=== PATIENT | female | born 1960 ===

== ENCOUNTER 2022-12-18 12:46 | Outpatient (REF) | payer MEDICAID, SELFPAY ==
--- OUTSIDE RECORDS SUMMARY | 2022-12-18 12:56 | XMS_ITS | Continuity of Care Document ---
Author Name [facility] Address [address] [place] [address] Organization [facility] Address [address] [place] [address] Care Team Providers Care Peanut Farmer Name Role Phone Obey Mcdowell Primary Care Physician Unavaila Obey Proctor Attending Physician Unavailable Allergies, Adverse Reactions, Alerts No allergy information available. Medications No medication information available. 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 Relevant Diagnostic Tests and/or Laboratory Data No known relevant diagnostic tests, laboratory data, and/or discharge summary. Chief Complaint and Reason for Visit Encounter Admit Date Chief Complaint Reason for V isit Discharged Recurring August 16, 2018 12:00pm RT MARIA FERNANDA ULDER PAIN, LT LEG PAIN Hospital Discharge Instructions No known hospital discharge instructions. Encounters Encounter Facility Location Admit/Visit Date Discharge/Departure Date Attending Provider Discharged Recurring [facility] August 16, 2018 12:00pm October 18, 2018 10:25am Obey Mcdowell Departed Physician/Pr ovider Office Visit [facility] Ophthalmology April 29, 2018 12:00am April 29, 2018 Medent, Conversion Departed Physician/Pr ovider Office Visit [facility]hthal[facility] March 23, 2018 12:00am March 23, 2018 Medent, Conversion Departed Physician/Pr ovider Office Visit [facility] Dermatology February 28, 2018 12:00am February 28, 2018 Medent, Conversion Departed Physician/Pr ovider Office Visit [facility] Ophthalmology February 04, 2018 12:00am February 04, 2018 Medent, Conversion Departed Physician/Pr ovider Office Visit [facility] December 17, 2017 12:00am December 17, 2017 Medent, Conversion Departed Physician/Pr ovider Office Visit [facility] December 15, 2017 12:00am December 15, 2017 Medent, Conversion Departed Physician/Pr ovider Office Visit [facility] December 10, 2017 12:00am December 10, 2017 Medent, Conversion Functional Status No known functional status. Immunizations No known immunizations. Payers Payer Name Policy Type Covered Democrat Covered Democrat Id Relationship Subscriber Subscriber Id [place] Medicaid STELLA QUEZADA [id number] Self/Same as Patient STELLA QUEZADA [id number] SELF PAY Personal [place] MEDICAID (DO NOT USE) Medicaid STELLA QUEZADA [id number] Self/Same as Patient STELLA QUEZADA [id number] Plan of Care No Known Plan of Care Information Social History No known social history. Vital Signs Vital Reading Result Reference Range Collection Date/Time Height 5 ft 8 in March 23 1:27pm Weight 63.503 kg March 23 1:27pm Temperature n/a Pulse n/a Respiration n/a Pulse Oximetry n/a Blood Pressure Systolic 120 100-140 Febr uary 2018 1:27pm Blood Pressure Diastolic 79 50-85 Feb ruary 2018 1:27pm Body Mass Index n/a
--- OUTSIDE RECORDS SUMMARY | 2022-12-18 12:56 | XMS_ITS | Continuity of Care Document ---
Author Name Unknown Address [address] [place] [address] Phone Organization [facility] Address [address] [place] [address] Phone Care Team Providers Care Fruit Or Nut Farmer Name Role Phone Mcdowell Obey Primary Care Provider Unavailab le Obey Mcdowell Attending Provider Unavailable Allergies, Adverse Reactions, Alerts No allergy information available. Medications No medication information available. 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, 2016 Activ e Chief Complaint and Reason for Visit Chief Complaint RT SHOULDER PAIN, LT LEG PAIN Encounters Encounter Location(s) Arrival/Admit Date Discharge/Depart Date Provider(s) Departed Physician/Provi rayna Office Visit [facility] Ophthalmology December 10, 2017 12:00am December 10, 2017 Conversion Medent Departed Physician/Provi rayna Office Visit [facility] Dermatology December 15, 2017 12:00am December 15, 2017 Conversion Medent Departed Physician/Provi rayna Office Visit [facility] Ophthalmology December 17, 2017 12:00am December 17, 2017 Conversion Medent Departed Physician/Provi rayna Office Visit [facility] Ophthalmology February 04, 2018 12:00am February 04, 2018 Conversion Medent Departed Physician/Provi rayna Office Visit [facility] Dermatology February 28, 2018 12:00am February 28, 2018 Conversion Medent Departed Physician/Provi rayna Office Visit [facility] Ophthalmology March 23, 2018 12:00am March 23, 2018 Conversion Medent Departed Physician/Provi rayna Office Visit [facility] Ophthalmology April 29, 2018 12:00am April 29, 2018 Conversion Medent Discharged Recurring [facility] August 16, 2018 12:00pm October 18, 2018 10:25am NATALIA Mcdowell Assessments No Assessments Information Available Family History Relationship Condition Age at Onset Recorded Date/T serina Parent Cataract Unknown Glaucoma Unknown Parent Cataract Unknown Functional Status No Functional Status information available Goals No Goals Information Available Mental Status No Mental Status Information Available Medical Equipment No Medical Equipment Information available Insurance Providers Guarantor STELLA CARMICHAEL Address [address] [place] [address] Contact Info. Home Phone: Payer Policy Id Coverage Id Subscriber's Name Subscriber Id Effective Date Expiration Date [place] [id number] STELLA QUEZADA [id number] SELF PAY Self N/A [place] (DO [place] USE) [id number] STELLA QUEZADA [id number] Social History Assigned Sex Female Vital Signs Vital Reading Result Reference Range Collection Date/Time Height 68 [in_i] March 23 1:27pm Weight 63.50 kg March 23 1:27pm BP Systolic 120 mm[Hg] 100-140 March 23 019 1:27pm BP Diastolic 79 mm[Hg] 50-85 March 23 019 1:27pm
--- OUTSIDE RECORDS SUMMARY | 2022-12-18 12:56 | XMS_ITS | Continuity of Care Document ---
Author Name [facility] Address [address] [place] [address] Organization [facility] Address [address] [place] [address] Care Team Providers Care Drupal Web Developer Name Role Phone Obey Mcdowell Primary Care Physician Obey Mcdowell Attending Physician Allergies, Adverse Reactions, Alerts No known allergies. Medications No medication information available. Problem List Active Problems Medical Problem Onset Date Status Hypertension Procedures No known history of procedures. Relevant Diagnostic Tests and/or Laboratory Data Laboratory Results Test Date/Time Result Interp. Ref. Range Result Co mment White Blood Count June 05, 2020 11:33am 6.66 1000/mm3 4.8-10.8 Red Blood Count June 05, 2020 11:33am 4.57 M/mm3 4.20-5.40 Hemoglobin June 05, 2020 11:33am 14.1 g/dL 12.0-16.0 Hematocrit June 05, 2020 11:33am 42.4 % 37-47 Mean Corpuscular Volume June 05, 2020 11:33am 92.8 fL 81.0-99.0 Mean Corpuscular Hemoglobin June 05, 2020 11:33am 30.9 pg 27-31 Mean Corpuscular Hemoglobin Concent June 05, 2020 11:33am 33.3 g/dL 33-37 Red Cell Distribution Width June 05, 2020 11:33am 12.5 % 11.5-14.5 Platelet Count June 05, 2020 11:33am 366 1000/mm3 140-440 Mean Platelet Volume June 05, 2020 11:33am 10.2 fL 7.4-10.4 Sodium Level June 05, 2020 11:33am 137 mmol/L 137-145 Potassium Level June 05, 2020 11:33am 4.2 mmol/L 3.6-5.0 Chloride Level June 05, 2020 11:33am 99 mmol/L 98-107 Carbon Dioxide Level June 05, 2020 11:33am 32 mmol/L High 22-30 Anion Gap June 05, 2020 11:33am 6 Low 7-16 Blood Urea Nitrogen June 05, 2020 11:33am 14 mg/dL 7-17 Creatinine June 05, 2020 11:33am 0.80 mg/dL 0.52-1.04 Glomerular Filtration Rate Calc June 05, 2020 11:33am > 60 mL/min 60.0- Glucose Level June 05, 2020 11:33am 98 mg/dL 70-100 Calcium Level June 05, 2020 11:33am 9.9 mg/dL 8.4-10.2 Calcium Adjusted for Albumin June 05, 2020 11:33am 10.2 mg/dL 8.4-10.2 Magnesium Level June 05, 2020 11:33am 2.2 mg/dL 1.6-2.3 Total Bilirubin June 05, 2020 11:33am 0.6 mg/dL 0.2-1.3 Aspartate Amino Transf (AST/SGOT) June 05, 2020 11:33am 23 U/L 14-36 Alanine Aminotransferase (ALT/SGPT) June 05, 2020 11:33am 19 U/L As of 06/16/19, th e Reference Range for ALT/SGPT for adult patients has been updated. The Reference Range for ALT/SGPT has not been established for patients <18 years of age. Total Protein June 05, 2020 11:33am 6.7 g/dL 6.3-8.2 Albumin June 05, 2020 11:33am 3.9 g/dL 3.5-5.0 Cholesterol Level June 05, 2020 11:33am 214 mg/dL High 59-199 HDL Cholesterol June 05, 2020 11:33am 53 mg/dL 40-60 The National Cholesterol Education Program (NCEP) has set the following guidelines (reference values) for cholesterol, HDL: Low HDL: <40 mg/dL Normal: 40-60 mg/dL Desirable: >60 mg/dL LDL Cholesterol June 05, 2020 11:33am 133.2 mg/dL High 0-129 VLDL Cholesterol June 05, 2020 11:33am 27.8 mg/dL 0-32 Cholesterol/HDL Ratio June 05, 2020 11:33am 4.03 High 0-3.9 Triglycerides Level June 05, 2020 11:33am 139 mg/dL 0-149 Alkaline Phosphatase June 05, 2020 11:33am 36 U/L Low 38-126 Hospital Discharge Instructions No known hospital discharge instructions. Encounters Encounter Facility Location Admit/Visit Date Discharge/Departure Date Attending Provider Departed Referred [facility] June 05, 2020 6:56pm June 05, 2020 6:57pm Obey Mcdowell Discharged Recurring [facility] November 13, 2019 2:15pm December 11, 2019 3:07pm Obey Mcdowell Functional Status No known functional status. Immunizations No known immunizations. Plan of Care No Known Plan of Care Information Social History No known social history. Vital Signs No known vital signs results.
--- OUTSIDE RECORDS SUMMARY | 2022-12-18 12:56 | XMS_ITS | Continuity of Care Document ---
Author Name [facility] Address [address] [place] [address] Organization [facility] Address [address] [place] [address] Care Team Providers Care Manager Of Data Name Role Phone Obey Mcdowell Primary Care Physician Lulú Cox Attending Physician [phone] Allergies, Adverse Reactions, Alerts No known allergies. [...] Date Discharge/Departure Date Attending Provider Departed Referred [facility] July 24, 2020 6:15pm July 24, 2020 6:16pm Lulú Cox Departed Referred [facility] June 05, 2020 6:56pm June 05, 2020 6:57pm Obey Mcdowell Discharged Recurring [facility] November 13, 2019 2:15pm December 11, 2019 3:07pm Obey Mcdowell Functional Status No known functional status. Immunizations No known immunizations. Plan of Care No Known Plan of Care Information Social History No known social history. Vital Signs No known vital signs results.
--- OUTSIDE RECORDS SUMMARY | 2022-12-18 12:56 | XMS_ITS | Continuity of Care Document ---
Author Name [facility] Address [address] [place] [address] Organization [facility] Address [address] [place] [address] Care Team Providers Care Line Server Name Role Phone Obey Mcdowell Primary Care Physician [phone] Obey Mcdowell Attending Physician Allergies, Adverse Reactions, Alerts No allergy information available. Medications No medication information available. Problem List No problem information available. Procedures No known history of procedures. Relevant Diagnostic Tests and/or Laboratory Data No known relevant diagnostic tests, laboratory data, and/or discharge summary. Hospital Discharge Instructions No known hospital discharge instructions. Encounters Encounter Facility Location Admit/Visit Date Discharge/Departure Date Attending Provider Departed Referred [facility] Pathology May 26, 2017 8:36pm May 26, 2017 8:37pm Obey Mcdowell Functional Status No known functional status. Immunizations No known immunizations. Payers Payer Name Policy Type Covered Constitution Party Covered Constitution Party Id Relationship Subscriber Subscriber Id SELF PAY Personal [place] MED[place] (DO NOT USE[place] Medicaid STELLA QUEZADA [id number] Self/Same as Patient STELLA QUEZADA [id number] Plan of Care No Known Plan of Care Information Social History No known social history. Vital Signs No known vital signs results.
--- OUTSIDE RECORDS SUMMARY | 2022-12-18 12:56 | XMS_ITS | Continuity of Care Document ---
Author Name Unknown Address [address] [place] [address] Phone Organization [facility] Address [address] [place] [address] Phone Care Team Providers Care Career Transition Specialist Name Role Phone Obey Mcdowell Primary Care Provider Obey Mcdowell Attending Provider Allergies, Adverse Reactions, Alerts No known allergies. Medications No medication information available. Problems Active Problems Medical Problem Onset Date Status Hypertension Active Relevant Diagnostic Tests and/or Laboratory Data Laboratory Results Test Date/Time Result Interpretation Reference Range Result Comment Performing Site White Blood Count June 05, 2020 11:33am 6.66 1000/mm3 4.8-10.8 MAIN LAB, [address] [place] [address] Red Blood Count June 05, 2020 11:33am 4.57 M/mm3 4.20-5.40 MAIN LAB, [address] [place] [address] Hemoglobin June 05, 2020 11:33am 14.1 g/dL 12.0-16.0 MAIN LAB, [address] [place] [address] Hematocrit June 05, 2020 11:33am 42.4 % 37-47 MAIN LAB, [address] [place] [address] Mean Corpuscular Volume June 05, 2020 11:33am 92.8 fL 81.0-99.0 MAIN LAB, [address] [place] [address] Mean Corpuscular Hemoglobin June 05, 2020 11:33am 30.9 pg 27-31 MAIN LAB, [address] [place], [place] [address] Mean Corpuscular Hemoglobin Concent June 05, 2020 11:33am 33.3 g/dL 33-37 MAIN LAB, [address] [place] [address] Red Cell Distribution Width June 05, 2020 11:33am 12.5 % 11.5-14.5 MAIN LAB, [address] [place] [address] Platelet Count June 05, 2020 11:33am 366 1000/mm3 140-440 MAIN LAB, [address] [place], [place] [address] Mean Platelet Volume June 05, 2020 11:33am 10.2 fL 7.4-10.4 MAIN LAB, [address] [place], [place] [address] Sodium Level June 05, 2020 11:33am 137 mmol/L 137-145 MAIN LAB, [address] [place] [address] Potassium Level June 05, 2020 11:33am 4.2 mmol/L 3.6-5.0 MAIN LAB, [address] [place] [address] Chloride Level June 05, 2020 11:33am 99 mmol/L 98-107 MAIN LAB, [address] [place], [place] [address] Carbon Dioxide Level June 05, 2020 11:33am 32 mmol/L 22-30 MAIN LAB, [address] [place] [address] Anion Gap June 05, 2020 11:33am 6 7-16 MAIN LAB, [address] [place], [place] [address]50[address] Blood Urea Nitrogen June 05, 2020 11:33am 14 mg/dL 7-17 MAIN LAB, [address] [place], [place] [address] Creatinine June 05, 2020 11:33am 0.80 mg/dL 0.52-1.04 MAIN LAB, [address] [place], [place] [address] Glomerular Filtration Rate Calc June 05, 2020 11:33am > 60 mL/min >60.0 MAIN LAB, [address] [place], [place] [address]50[address] Glucose Level June 05, 2020 11:33am 98 mg/dL 70-100 MAIN LAB, [address] [place], [place] [address] Calcium Level June 05, 2020 11:33am 9.9 mg/dL 8.4-10.2 MAIN LAB, [address] [place], [place] [address] Calcium Adjusted for Albumin June 05, 2020 11:33am 10.2 mg/dL 8.4-10.2 MAIN LAB, [address] [place] [address] Magnesium Level June 05, 2020 11:33am 2.2 mg/dL 1.6-2.3 MAIN LAB, [address] [place], [place] [address] Total Bilirubin June 05, 2020 11:33am 0.6 mg/dL 0.2-1.3 MAIN LAB, [address] [place], [place] [address] Aspartate Amino Transf (AST/SGOT) June 05, 2020 11:33am 23 U/L 14-36 MAIN LAB, [address] [place], [place] [address] Alanine Aminotransferase (ALT/SGPT) June 05, 2020 11:33am 19 U/L <35 As of 06/16/19, the Reference Range for ALT/SGPT for adult patients has been updated. The Reference Range for ALT/SGPT has not been established for patients <18 years of age. MAIN LAB, [address] [place], [place] [address] Total Protein June 05, 2020 11:33am 6.7 g/dL 6.3-8.2 MAIN LAB, [address] [place] [address] Albumin June 05, 2020 11:33am 3.9 g/dL 3.5-5.0 MAIN LAB, [address] [place] [address] Cholesterol Level June 05, 2020 11:33am 214 mg/dL 59-199 MAIN LAB, [address] [place] [address] HDL Cholesterol June 05, 2020 11:33am 53 mg/dL 40-60 The National Cholesterol Education Program (NCEP) has set the following guidelines (reference values) for cholesterol, HDL:Low HDL: <40 mg/dLNormal: 40-60 mg/dLDesirab le: >60 mg/dL MAIN LAB, [address] [place] [address] LDL Cholesterol June 05, 2020 11:33am 133.2 mg/dL 0-129 MAIN LAB, [address] [place] [address] VLDL Cholesterol June 05, 2020 11:33am 27.8 mg/dL 0-32 MAIN LAB, [address] [facility] [address] Cholesterol/HDL Ratio June 05, 2020 11:33am 4.03 0-3.9 MAIN LAB, [address] [facility] [address] Triglycerides Level June 05, 2020 11:33am 139 mg/dL 0-149 MAIN LAB, [address] [facility] [address] Alkaline Phosphatase June 05, 2020 11:33am 36 U/L 38-126 MAIN LAB, [address] [facility] [address] Advance Directives Advance Directive Response Recorded Date/ Time Does patient have an Advanced Directive? No May 18, 2018 1:03pm Do we have a copy on file here at [facility]? No May 18, 2018 1:03pm Pt has a Living Will? No May 18, 2018 1:03pm Do we have a copy on file here at [facility]? No May 18, 2018 1:03pm Pt has a Power of Commissary Worker? No Apri 2018 1:03pm Do we have a copy on file here at [facility]? No May 18, 2018 1:03pm Chief Complaint and Reason for Visit Chief Complaint pain in right knee Encounters Encounter Location(s) Arrival/Admit Date Discharge /Depart Date Provider(s) Discharged Recurring [facility] November 13, 2019 2:15pm December 11, 2019 3:07pm NATALIA Mcdowell Departed Referred [facility] June 05, 2020 6:56pm June 05, 2020 6:57pm NATALIA Mcdowell Assessments No Assessments Information Available Family History Relationship Condition Age at Onset Recorded Date/T serina Parent Cataract Unknown Glaucoma Unknown Parent Cataract Unknown Functional Status No Functional Status information available Goals Goals may be documented in an alternate section. Mental Status No Mental Status Information Available Medical Equipment No Medical Equipment Information available Insurance Providers Guarantor STELLA CARMICHAEL Address [address] [facility] [address] Contact Info. Home Phone: Payer Policy Id Coverage Id Subscriber's Name Subscriber Id Effective Date Expiration Date [place] [id number] STELLA QUEZADA [id number] SELF PAY Self N/A [place] (DO [place] USE) [id number] STELLA QUEZADA [id number] Social History Assigned Sex Female
--- OUTSIDE RECORDS SUMMARY | 2022-12-18 12:56 | XMS_ITS | Continuity of Care Document ---
Author Name [facility] Address [address] [place] [address] Organization [facility] Address [address] [place] [address] Care Team Providers Care Administrative Hearing Officer Name Role Phone Obey Mcdowell Primary Care Physician [phone] Obey Mcdowell Attending Physician Allergies, Adverse Reactions, [...] Date Discharge/Departure Date Attending Provider Discharged Recurring [facility] November 13, 2019 2:15pm December 11, 2019 3:07pm Obey Mcdowell Departed Physician/Pr bri Office Visit [facility] Ophthalmology May 05, 2019 12:00am May 05, 2019 Medent, Conversion Functional Status No known functional status. Immunizations No known immunizations. Plan of Care No Known Plan of Care Information Social History No known social history. Vital Signs No known vital signs results.
--- OUTSIDE RECORDS SUMMARY | 2022-12-18 12:56 | XMS_ITS | Continuity of Care Document ---
Author Name Unknown Address [address] [place] [address] Phone Organization [facility] Address [address] [place] [address] Phone Care Team Providers Care Child Care Counselor Name Role Phone Obey Mcdowell Primary Care Provider [phone] Obey Mcdowell Attending Provider [phone] Allergies, Adverse Reactions, Alerts No known allergies. Medications No medication information available. Problems Active Problems Medical Problem Onset Date Status Hypertension Active Advance Directives Advance Directive Response Recorded Date/ Time Does patient have an Advanced Directive? No May 18, 2018 1:03pm Do we have a copy on file here at [facility]? No May 18, 2018 1:03pm Pt has a Living Will? No May 18, 2018 1:03pm Do we have a copy on file here at [facility]? No May 18, 2018 1:03pm Pt has a Power of Marine Mechanic? No Apr2018 1:03pm Do we have a copy on file here at [facility]? No May 18, 2018 1:03pm Chief Complaint and Reason for Visit Chief Complaint pain in right knee Encounters Encounter Location(s) Arrival/Admit Date Discharge/Depart Date Provider(s) Departed Physician/Provi rayna Office Visit [facility] Ophthalmology May 05, 2019 12:00am May 05, 2019 12:00am Conversion Medent Discharged Recurring [facility] November 13, 2019 2:15pm December 11, 2019 3:07pm NATALIA Mcdowell Assessments No Assessments Information Available Family History Relationship Condition Age at Onset Recorded Date/T serina Parent Cataract Unknown Glaucoma Unknown Parent Cataract Unknown Functional Status No Functional Status information available Goals Goals may be documented in an alternate section. Mental Status No Mental Status Information Available Medical Equipment No Medical Equipment Information available Insurance Providers Guarantor STELLA CARMICHAEL Address [address] [facility] [address] Contact Info. Home Phone: Payer Policy Id Coverage Id Subscriber's Name Subscriber Id Effective Date Expiration Date [place] [id number] STELLA QUEZADA [id number] SELF PAY Self N/A [place] (DO [place] USE) [id number] STELLA QUEZADA [id number] Social History Assigned Sex Female
--- OUTSIDE RECORDS SUMMARY | 2022-12-18 12:56 | XMS_ITS | Continuity of Care Document ---
Author Name Unknown Address [address] [place] [address] Phone [facility] Address [address] [place] [address] Phone Care Team Providers Care Connie Cleaner Name Role Phone Medardo Gonzalez Primary Care Provider [phone] Medardo Gonzalez Attending Provider [phone] Chief Complaint and Reason for Visit Chief Complaint Bilat Elbow Pain Allergies, Adverse Reactions, Alerts No known allergies Social History Smoking Status Unknown if ever smoked Additional Data Assigned Sex Female Family History Relationship Condition Age at Onset Recorded Date/T serina Parent Cataract Unknown Glaucoma Unknown Parent Cataract Unknown Problems Active Problems Medical Problem Onset Date Status Hypertension Active Vital Signs Vital Reading Result Reference Range Collection Date/Time BP Systolic 138 mm[Hg] 100-140 January 28, 2022 2:00pm BP Diastolic 86 mm[Hg] 50-85 January 28, 2022 2:00pm Advance Directives Advance Directive Response Recorded Date/ Time Does patient have an Advance Directive? No January 28, 2022 12:51pm Does patient have a COLST form? No January 28, 2022 12:51pm Insurance Providers Guarantor STELLA CARMICHAEL Address [address] [place] [address] Contact Info. Home Phone: Payer Policy Id Coverage Id Subscriber's Name Subscriber Id Effective Date Expiration Date [facility] [id number] STELLA CARMICHAEL [id number] SELF PAY Self N/A [place] MEDICAID (DO NOT USE) [id number] STELLA CARMICHAEL [id number] Encounters Encounter Location(s) Arrival/Admit Date Discharge /Depart Date Provider(s) Discharged Recurring [facility] February 25, 2022 3:00pm April 14, 2022 3:08pm RAY Alfaro Functional Status Observation Response Date Recorded Living Situation Alone January 28, 2022 1:12pm
[2022-12-18 16:01] LABS: Anion Gap 6.5 mmol/L (3-11); BUN 9 mg/dL (7-18); CO2 30.5 mmol/L (21.0-32.0); CREATININE 0.9 mg/dL (0.55-1.02); Calcium 9.8 mg/dL (8.5-10.1); Calculated LDL 126 mg/dL (<100); Chloride 103 mmol/L (98-107); Cholesterol 219 mg/dL (<200); Estimated GFR 71.83 (mL/min/1.73m2); Glucose 106 mg/dL (74-106); HDL Cholesterol 71 mg/dL (40-60); Sodium 140 mmol/L (136-145); Triglyceride 114 mg/dL (<150)
== END 2022-12-18 12:47 | disposition home or self-care (01) ==
LOC: NCHCN 12:46
PROVIDERS: Visit Provider Physician Assistant
DX: I10 Essential (primary) hypertension (principal)
CPT/HCPCS: 80048; 80061

== ENCOUNTER 2023-02-24 17:30 | Outpatient (REF) | payer MEDICAID, SELFPAY ==
--- NOTE | 2023-02-24 14:00 | PAPFT_PTH ---
PATIENT: Alexus Estrada LOC: [facility] U#:[id number] AGE/SX: 62/F ROOM: RE02/24/[address]: Medardo Gonzalez : 1960 BED: DIS: 02/24/2023 SPEC #: [id number] RECD: 02/25/23 17:48 STATUS: JANNETMarkos REQ #: [id number] SARAH: 02/24/23 14:[address]: Medardo Gonzalez DEPT: [facility] Cytology RECD BY: Natalee Mckenzie ENTERED: 02/25/23 17:48 SP TYPE: PAPFT NOBLE DR: Unknown,Unknown Tissues: 1 - CX/ENDOCX FOR PAP SMEARS Procedures: PAP THIN PREP/[facility] Screening HPV DNA PROBE Comments: [id number]
--- OUTSIDE RECORDS SUMMARY | 2023-02-25 17:33 | XMS_ITS | Continuity of Care Document ---
Author Name Unknown Address [address] [place] [address] Phone Organization [facility] Address [address] [place] [address] Phone Care Team Providers Care Corporate Logistics Manager Name Role Phone Obey Mcdowell Primary Care Provider [phone] Obey Mcdowell Attending Provider Lulú Cox Attending Provider [phone] Allergies, Adverse Reactions, Alerts No known allergies. Medications No medication information available. Problems Active Problems Medical Problem Onset Date Status Hypertension Active Relevant Diagnostic Tests and/or Laboratory Data Laboratory Results Test Date/Time Result Interpretation Reference Range Result Comment Performing Site White Blood Count June 05, 2020 11:33am 6.66 1000/mm3 4.8-10.8 MAIN LAB, [address] [place] [address]3631 Red Blood Count June 05, 2020 11:33am 4.57 M/mm3 4.20-5.40 MAIN LAB, [address] [place] [address] 60881 Hemoglobin June 05, 2020 11:33am 14.1 g/dL 12.0-16.0 MAIN LAB, [address] [place] [address] 60747 Hematocrit June 05, 2020 11:33am 42.4 % 37-47 MAIN LAB, [address] [place] [address] 15413 Mean Corpuscular Volume June 05, 2020 11:33am 92.8 fL 81.0-99.0 MAIN LAB, [address] [place] [address] 38628 Mean Corpuscular Hemoglobin June 05, 2020 11:33am 30.9 pg 27-31 MAIN LAB, [address] [place] [address] 02976 Mean Corpuscular Hemoglobin Concent June 05, 2020 11:33am 33.3 g/dL 33-37 MAIN LAB, [address] [place] [address] 35955 Red Cell Distribution Width June 05, 2020 11:33am 12.5 % 11.5-14.5 MAIN LAB, [address] [place] [address] 17048 Platelet Count June 05, 2020 11:33am 366 1000/mm3 140-440 MAIN LAB, [address] [place], [place] [address] Mean Platelet Volume June 05, 2020 11:33am 10.2 fL 7.4-10.4 MAIN LAB, [address] [place], [place] [address] Sodium Level June 05, 2020 11:33am 137 mmol/L 137-145 MAIN LAB, [address] [place], [place] [address] Potassium Level June 05, 2020 11:33am 4.2 mmol/L 3.6-5.0 MAIN LAB, [address] [place] [address] 14692 Chloride Level June 05, 2020 11:33am 99 mmol/L 98-107 MAIN LAB, [address] [place] [address] 89337 Carbon Dioxide Level June 05, 2020 11:33am 32 mmol/L 22-30 MAIN LAB, [address] [place], [place] [address] Anion Gap June 05, 2020 11:33am 6 7-16 MAIN LAB, [address] [place] [address] 77231 Blood Urea Nitrogen June 05, 2020 11:33am 14 mg/dL 7-17 MAIN LAB, [address] [place] [address] 23389 Creatinine June 05, 2020 11:33am 0.80 mg/dL 0.52-1.04 MAIN LAB, [address] [place] [address] 17916 Glomerular Filtration Rate Calc June 05, 2020 11:33am > 60 mL/min >60.0 MAIN LAB, [address] [place], [place] [address] Glucose Level June 05, 2020 11:33am 98 mg/dL 70-100 MAIN LAB, [address] [place] [address] 58464 Calcium Level June 05, 2020 11:33am 9.9 mg/dL 8.4-10.2 MAIN LAB, [address] [place] [address] 37885 Calcium Adjusted for Albumin June 05, 2020 11:33am 10.2 mg/dL 8.4-10.2 MAIN LAB, [address] [place] [address] 66313 Magnesium Level June 05, 2020 11:33am 2.2 mg/dL 1.6-2.3 MAIN LAB, [address] [place] [address] 14380 Total Bilirubin June 05, 2020 11:33am 0.6 mg/dL 0.2-1.3 MAIN LAB, [address] [place] [address] 85952 Aspartate Amino Transf (AST/SGOT) June 05, 2020 11:33am 23 U/L 14-36 MAIN LAB, [address] [place] [address] 99335 Alanine Aminotransferase (ALT/SGPT) June 05, 2020 11:33am 19 U/L <35 As of 06/16/19, the Reference Range for ALT/SGPT for adult patients has been updated. The Reference Range for ALT/SGPT has not been established for patients <18 years of age. MAIN LAB, [address] [place] [address] 87093 Total Protein June 05, 2020 11:33am 6.7 g/dL 6.3-8.2 MAIN LAB, [address] [place] [address] 79672 Albumin June 05, 2020 11:33am 3.9 g/dL 3.5-5.0 MAIN LAB, [address] [place] [address] 49268 Cholesterol Level June 05, 2020 11:33am 214 mg/dL 59-199 MAIN LAB, [address] [place] [address] 00611 HDL Cholesterol June 05, 2020 11:33am 53 mg/dL 40-60 The National Cholesterol Education Program (NCEP) has set the following guidelines (reference values) for cholesterol, HDL:Low HDL: <40 mg/dLNormal: 40-60 mg/dLDesirab le: >60 mg/dL MAIN LAB, [address] [place] [address] 94749 LDL Cholesterol June 05, 2020 11:33am 133.2 mg/dL 0-129 MAIN LAB, [address] [place] [address] 91582 VLDL Cholesterol June 05, 2020 11:33am 27.8 mg/dL 0-32 MAIN LAB, [address] [facility] [address] Cholesterol/HDL Ratio June 05, 2020 11:33am 4.03 0-3.9 MAIN LAB, [address] [facility] [address] Triglycerides Level June 05, 2020 11:33am 139 mg/dL 0-149 MAIN LAB, [address] [facility] [address] Alkaline Phosphatase June 05, 2020 11:33am 36 U/L 38-126 MAIN LAB, [address] [facility] [address] Advance Directives Advance Directive Response Recorded Date/ Time Does patient have an Advanced Directive? No May 18, 2018 1:03pm Do we have a copy on file here at [facility]? No May 18, 2018 1:03pm Pt has a Living Will? No May 18, 2018 1:03pm Do we have a copy on file here at [facility]? No May 18, 2018 1:03pm Pt has a Power of Hat Designer? No Apri 2018 1:03pm Do we have a copy on file here at [facility]? No May 18, 2018 1:03pm Chief Complaint and Reason for Visit Chief Complaint pain in right knee Encounters Encounter Location(s) Arrival/Admit Date Discharge /Depart Date Provider(s) Discharged Recurring [facility] November 13, 2019 2:15pm December 11, 2019 3:07pm NATALIA Mcdowell Departed Referred [facility] June 05, 2020 6:56pm June 05, 2020 6:57pm NATALIA Mcdowell Departed Referred [facility] July 24, 2020 6:15pm July 24, 2020 6:16pm RAY Barreto Assessments No Assessments Information Available Family History Relationship Condition Age at Onset Recorded Date/T serina Parent Cataract Unknown Glaucoma Unknown Parent Cataract Unknown Functional Status No Functional Status information available Goals Goals may be documented in an alternate section. Mental Status No Mental Status Information Available Medical Equipment No Medical Equipment Information available Insurance Providers Guarantor STELLA JANY Address [address] [facility] [address] Contact Info. Home Phone: Payer Policy Id Coverage Id Subscriber's Name Subscriber Id Effective Date Expiration Date [place] [id number] STELLA QUEZADA [id number] SELF PAY Self N/A [place] MEDICAID (DO NOT USE) [id number] STELLA QUEZADA [id number] Social History Assigned Sex Female
== END 2023-02-24 17:31 | disposition home or self-care (01) ==
LOC: NCHCN 17:30
PROVIDERS: Visit Provider Physician Assistant
DX: Z12.4 Encounter for screening for malignant neoplasm of cervix (principal); Z11.51 Encounter for screening for human papillomavirus (HPV)
CPT/HCPCS: 88142; 87624

== ENCOUNTER 2024-06-15 20:37 | Outpatient (REF) | payer OTHER, SELFPAY ==
[2024-06-15 19:17] LABS: HCT 42.1 % (36.0-46.0); HGB 13.8 g/dL (11.2-15.7); MCH 29.6 pg (27.0-33.0); MCHC 32.8 % (32.0-36.0); MCV 90 fL (80-95); MPV 9.8 fL (8.0-11.0); Platelet Count 304 10^3/uL (130-400); RBC 4.66 10^6/uL (3.93-5.22); RDW 13.4 % (11.7-14.6); RDW-SD 44.3 fL; WBC 7.84 10^3/uL (4.4-10.8)
[2024-06-15 19:39] LABS: ALT 27 U/L (14-59); AST 20 U/L (15-37); Albumin 3.8 g/dL (3.4-5.0); Alkaline Phosphatase 54 U/L (46-116); Anion Gap 5.4 mmol/L (3-11); BUN 19 mg/dL (7-18); Bilirubin, Total 0.8 mg/dL (0.2-1.0); CO2 28.6 mmol/L (21.0-32.0); CREATININE 0.9 mg/dL (0.55-1.02); Calcium 9.7 mg/dL (8.5-10.1); Chloride 106 mmol/L (98-107); Estimated GFR 71.39 (mL/min/1.73m2); FREE T4 0.99 ng/dL (0.76-1.46); Glucose 162 mg/dL (74-106); Potassium 4.1 mmol/L (3.5-5.1); Sodium 140 mmol/L (136-145); TSH 1.56 uIU/mL (0.36-3.74); Total Protein 7.1 g/dL (6.4-8.2)
== END 2024-06-15 20:38 | disposition home or self-care (01) ==
LOC: NCHCN 20:37
PROVIDERS: PCP Physician Assistant; Visit Provider Physician Assistant
DX: L65.9 Nonscarring hair loss, unspecified (principal); I10 Essential (primary) hypertension
CPT/HCPCS: 80053; 85027; 84439; 84443